=== PATIENT | male | born 1945 | race Caucasian/White ===

== ENCOUNTER 2017-07-18 19:25 | Inpatient (IN) | payer MEDICARE ==
[~2017-07-18] VITALS: Ht 172.7 cm; Wt 96.2 kg
[2017-07-18 21:05] LABS: HEMATOCRIT 41.9 % (39.2-51.8); HEMOGLOBIN 13.7 g/dL (13.7-18.0); WHITE BLOOD COUNT 8.5 x10^3/uL (3.4-10)
[2017-07-18 21:17] LABS: ASPARTATE AMINO TRANSFERASE 29 U/L (15-37); BLOOD UREA NITROGEN 33 mg/dL (7-18)
[2017-07-18 21:25] LABS: IS PT STATUS REG ER OR PRE ER? YES
[2017-07-18] MEDS ORDERED: FUROSEMIDE 40 MG/4 ML ONE (21:50)
[2017-07-18] MEDS ORDERED: POTASSIUM CHLORIDE 20 MEQ TAB.ER.PRT ONE (21:50)
[2017-07-18] MEDS ORDERED: POTASSIUM CHLORIDE 20 MEQ TAB.ER.PRT PO ONE (22:00)
[2017-07-18] MEDS ORDERED: FUROSEMIDE 40 MG/4 ML IV ONE (22:00)
[2017-07-18] MEDS ORDERED: morphine SULFATE 10 MG/ML, 1ML IVPush PRN (22:30)
[2017-07-18] MEDS ORDERED: ONDANSETRON 2MG/ML, 2ML IVPush PRN (22:30)
[2017-07-18] MEDS ORDERED: ACETAMINOPHEN 325 MG TABLET PO PRN (22:30)
[2017-07-18] MEDS ORDERED: CARV12.5 PO (22:31)
[2017-07-18] MEDS ORDERED: AMBR5TAB3 PO (22:31)
[2017-07-18] MEDS ORDERED: SPIR25TA3 PO (22:33)
[2017-07-18] MEDS ORDERED: SITA100T PO (22:33)
[2017-07-18] MEDS ORDERED: ENAL10TA PO (22:33)
[2017-07-18] MEDS ORDERED: TORS20TA2 PO (22:33)
[2017-07-19] VITALS: BP 118/75
[2017-07-19 00:22] LABS: IS PT STATUS REG ER OR PRE ER? NO
[2017-07-19] MEDS ORDERED: AMBR5TAB3 PO (00:45)
[2017-07-19] MEDS: INSULIN ASPART 100 UNITS/ML, PEN SQ-INSULIN SCH ×5 (01:12→21:40)
[2017-07-19] MEDS: AMBRISENTAN HOMEMEDPO SCH ×2 (01:34→21:40)
[2017-07-19 01:40] VITALS: BP 94/60
[2017-07-19] MEDS: POTASSIUM CHLORIDE 20 MEQ TAB.ER.PRT PO SCH ×3 (01:42→16:37)
[2017-07-19 04:48] LABS: ASPARTATE AMINO TRANSFERASE 22 U/L (15-37); BLOOD UREA NITROGEN 32 mg/dL (7-18)
[2017-07-19 04:52] LABS: IS PT STATUS REG ER OR PRE ER? NO
[2017-07-19] MEDS: LACTULOSE 10 GM/15 ML UDC PO SCH ×2 (08:35→21:00)
[2017-07-19] MEDS: SODIUM CHLORIDE FLUSH 10ML SYR IVF SCH ×2 (08:35→21:39)
[2017-07-19] MEDS: FUROSEMIDE 40 MG/4 ML IV SCH ×2 (08:35→16:34)
[2017-07-19] MEDS: ENOXAPARIN 40 MG/0.4 ML SQ SCH (08:36)
[2017-07-19] MEDS ORDERED: CARVEDILOL 12.5 MG TABLET PO SCH (09:00)
[2017-07-19] MEDS ORDERED: LETAIRIS 5 MG PO SCH (09:00)
[2017-07-19 10:28] VITALS: BP 105/71
[2017-07-19 13:25] VITALS: BP 101/65
[2017-07-19 18:30] VITALS: BP 118/69
[2017-07-19] MEDS: CARVEDILOL 3.125 MG TABLET PO SCH (21:39)
[2017-07-20] MEDS: TEMAZEPAM 15 MG CAPSULE PO PRN ×2 (00:16→22:45)
[2017-07-20 01:53] VITALS: BP 97/56
[2017-07-20 05:34] LABS: HEMATOCRIT 43.8 % (39.2-51.8); HEMOGLOBIN 14.1 g/dL (13.7-18.0); WHITE BLOOD COUNT 7.8 x10^3/uL (3.4-10)
[2017-07-20 06:11] LABS: BLOOD UREA NITROGEN 39 mg/dL (7-18)
[2017-07-20] MEDS: INSULIN ASPART 100 UNITS/ML, PEN SQ-INSULIN SCH ×4 (07:00→21:02)
[2017-07-20] MEDS: CARVEDILOL 3.125 MG TABLET PO SCH ×2 (08:09→16:59)
[2017-07-20] MEDS: ENOXAPARIN 40 MG/0.4 ML SQ SCH (08:09)
[2017-07-20] MEDS: POTASSIUM CHLORIDE 20 MEQ TAB.ER.PRT PO SCH ×2 (08:09→16:58)
[2017-07-20] MEDS: LACTULOSE 10 GM/15 ML UDC PO SCH ×2 (08:09→21:02)
[2017-07-20] MEDS: SODIUM CHLORIDE FLUSH 10ML SYR IVF SCH ×2 (08:10→21:02)
[2017-07-20] MEDS: FUROSEMIDE 40 MG/4 ML IV SCH (08:10)
[2017-07-20 09:12] VITALS: BP 126/79
[2017-07-20 14:49] VITALS: BP 125/77
[2017-07-20] MEDS: AMBRISENTAN HOMEMEDPO SCH (21:00)
[2017-07-20 21:11] VITALS: BP 123/76
[2017-07-21 03:25] VITALS: BP 132/80
[2017-07-21 04:31] LABS: HEMATOCRIT 38.5 % (39.2-51.8); HEMOGLOBIN 12.6 g/dL (13.7-18.0); WHITE BLOOD COUNT 7.3 x10^3/uL (3.4-10)
[2017-07-21 04:41] LABS: BLOOD UREA NITROGEN 37 mg/dL (7-18)
[2017-07-21] MEDS: CARVEDILOL 3.125 MG TABLET PO SCH ×2 (06:05→17:28)
[2017-07-21 07:51] VITALS: BP 120/73
[2017-07-21] MEDS: POTASSIUM CHLORIDE 20 MEQ TAB.ER.PRT PO SCH ×2 (08:05→17:28)
[2017-07-21] MEDS: LACTULOSE 10 GM/15 ML UDC PO SCH ×2 (08:05→20:28)
[2017-07-21] MEDS: ENOXAPARIN 40 MG/0.4 ML SQ SCH (08:05)
[2017-07-21] MEDS: SPIRONOLACTONE 25 MG TABLET PO SCH (08:05)
[2017-07-21] MEDS: INSULIN ASPART 100 UNITS/ML, PEN SQ-INSULIN SCH ×4 (08:06→20:28)
[2017-07-21] MEDS: SODIUM CHLORIDE FLUSH 10ML SYR IVF SCH ×2 (08:07→20:28)
[2017-07-21] MEDS ORDERED: FUROSEMIDE 20 MG/2 ML IV SCH (09:00)
[2017-07-21 13:10] VITALS: BP 128/87
[2017-07-21] MEDS: FUROSEMIDE 20 MG TABLET PO SCH (14:25)
[2017-07-21 19:24] VITALS: BP 123/74
[2017-07-21] MEDS: AMBRISENTAN HOMEMEDPO SCH (20:28)
[2017-07-22] MEDS: OXYcodone/APAP 5/325MG TABLET PO PRN ×2 (01:31→22:52)
[2017-07-22 01:35] VITALS: BP 123/76
[2017-07-22 06:06] LABS: HEMATOCRIT 41.5 % (39.2-51.8); HEMOGLOBIN 13.5 g/dL (13.7-18.0); WHITE BLOOD COUNT 6.4 x10^3/uL (3.4-10)
[2017-07-22 06:30] LABS: BLOOD UREA NITROGEN 39 mg/dL (7-18)
[2017-07-22] MEDS: INSULIN ASPART 100 UNITS/ML, PEN SQ-INSULIN SCH ×4 (07:00→21:26)
[2017-07-22 07:37] VITALS: BP 132/83
[2017-07-22] MEDS: POTASSIUM CHLORIDE 20 MEQ TAB.ER.PRT PO SCH ×2 (08:00→17:00)
[2017-07-22] MEDS: CARVEDILOL 3.125 MG TABLET PO SCH ×3 (10:07→16:54)
[2017-07-22] MEDS: FUROSEMIDE 20 MG TABLET PO SCH ×2 (10:07→10:30)
[2017-07-22] MEDS: ENOXAPARIN 40 MG/0.4 ML SQ SCH (10:07)
[2017-07-22] MEDS: LACTULOSE 10 GM/15 ML UDC PO SCH (10:07)
[2017-07-22] MEDS: SPIRONOLACTONE 25 MG TABLET PO SCH (10:07)
[2017-07-22] MEDS: SODIUM CHLORIDE FLUSH 10ML SYR IVF SCH (10:07)
[2017-07-22 12:24] VITALS: BP 116/71
[2017-07-22] MEDS ORDERED: ACETAMINOPHEN 325 MG TABLET PO PRN (19:00)
[2017-07-22] MEDS ORDERED: ONDANSETRON 2MG/ML, 2ML IVPush PRN (19:00)
[2017-07-22] MEDS ORDERED: FUROSEMIDE 40 MG/4 ML IV ONE (19:00)
[2017-07-22] MEDS: AMBRISENTAN HOMEMEDPO SCH (21:00)
[2017-07-22 21:19] VITALS: BP 141/86
[2017-07-23 02:00] VITALS: BP 126/76
[2017-07-23 05:46] LABS: HEMATOCRIT 43.2 % (39.2-51.8); HEMOGLOBIN 13.9 g/dL (13.7-18.0); WHITE BLOOD COUNT 6.1 x10^3/uL (3.4-10)
[2017-07-23 06:04] LABS: BLOOD UREA NITROGEN 38 mg/dL (7-18)
[2017-07-23] MEDS: SODIUM CHLORIDE FLUSH 10ML SYR IVF SCH ×2 (06:07→08:22)
[2017-07-23] MEDS: CARVEDILOL 3.125 MG TABLET PO SCH ×2 (06:08→17:26)
[2017-07-23] MEDS: ENOXAPARIN 40 MG/0.4 ML SQ SCH (08:22)
[2017-07-23] MEDS: FUROSEMIDE 20 MG TABLET PO SCH (08:22)
[2017-07-23] MEDS: SPIRONOLACTONE 25 MG TABLET PO SCH (08:22)
[2017-07-23] MEDS: INSULIN ASPART 100 UNITS/ML, PEN SQ-INSULIN SCH ×3 (08:22→16:23)
[2017-07-23 08:34] VITALS: BP 132/73
[2017-07-23 15:15] VITALS: BP 123/77
[2017-07-23] MEDS ORDERED: CARV3.1212 PO (16:01)
[2017-07-23] MEDS ORDERED: OXYC1TAB7 PO (16:01)
[2017-07-23] MEDS ORDERED: FURO20TA3 PO (16:01)
== END 2017-07-23 19:19 | disposition home or self-care (01) | DRG 291 ==
LOC: ED 21:58 → SUATTDRO 22:00 → EDIP 22:04 → ED 23:14 → 5SO 23:27
PROVIDERS: ADMIT Hospitalist; ATTEND Internal Medicine
DX: I13.0 Hypertensive heart and chronic kidney disease with heart failure and stage 1 through stage 4 chronic kidney disease, or unspecified chronic kidney disease (principal); E43 Unspecified severe protein-calorie malnutrition; J96.21 Acute and chronic respiratory failure with hypoxia; J18.9 Pneumonia, unspecified organism; N18.4 Chronic kidney disease, stage 4 (severe); N17.9 Acute kidney failure, unspecified; I27.2 Other secondary pulmonary hypertension; E11.21 Type 2 diabetes mellitus with diabetic nephropathy; I42.9 Cardiomyopathy, unspecified; E11.649 Type 2 diabetes mellitus with hypoglycemia without coma; I50.20 Unspecified systolic (congestive) heart failure; E11.22 Type 2 diabetes mellitus with diabetic chronic kidney disease; E80.4 Gilbert syndrome; E87.5 Hyperkalemia; I37.1 Nonrheumatic pulmonary valve insufficiency; Z91.19 Patient's noncompliance with other medical treatment and regimen; Z99.81 Dependence on supplemental oxygen; Z88.1 Allergy status to other antibiotic agents; Z68.32 Body mass index [BMI] 32.0-32.9, adult
CPT/HCPCS: 36415; 71020; 76770; 80048; 80053; 80061; 81001; 82962; 83735; 83880; 84100; 84443; 84484; 85025; 87040; 93005; 93306; 96374; J1650; J1815; J1940; J2270

== ENCOUNTER 2017-07-28 19:20 | Emergency (ER) | payer MEDICARE ==
[~2017-07-28] VITALS: Ht 172.7 cm; Wt 98.2 kg
[~2017-07-28 19:20] MED LIST: AMBR5TAB3 PO; CARV12.5 PO; CARV3.1212 PO; ENAL10TA PO; FURO20TA3 PO; OXYC1TAB7 PO; SITA100T PO; SPIR25TA3 PO; TORS20TA2 PO
[2017-07-28 20:26] LABS: BLOOD UREA NITROGEN 42 mg/dL (7-18)
[2017-07-28 20:32] LABS: ASPARTATE AMINO TRANSFERASE 22 U/L (15-37)
[2017-07-28 20:33] LABS: IS PT STATUS REG ER OR PRE ER? YES
[2017-07-28 20:51] LABS: HEMATOCRIT 42.4 % (39.2-51.8); HEMOGLOBIN 13.6 g/dL (13.7-18.0); WHITE BLOOD COUNT 7.8 x10^3/uL (3.4-10)
[2017-07-28] MEDS ORDERED: FUROSEMIDE 40 MG/4 ML ONE (20:56)
[2017-07-28] MEDS ORDERED: FUROSEMIDE 40 MG/4 ML IV ONE (21:00)
[2017-07-28] MEDS ORDERED: MAGNESIUM CITRATE 300ML ORAL SOL ONE (21:56)
[2017-07-28] MEDS ORDERED: MAGNESIUM CITRATE 300ML ORAL SOL PO ONE (22:00)
[2017-07-29 00:20] VITALS: BP 134/77
== END 2017-07-29 00:23 | disposition home or self-care (01) ==
LOC: ED 21:11
DX: I11.0 Hypertensive heart disease with heart failure (principal); I50.1 Left ventricular failure, unspecified; R60.0 Localized edema; R79.89 Other specified abnormal findings of blood chemistry; E11.9 Type 2 diabetes mellitus without complications
CPT/HCPCS: 36415; 71010; 80053; 83880; 84484; 85025; 93005; 96374; 99285; J1940

== ENCOUNTER 2017-08-02 16:40 | Inpatient (IN) | payer MEDICARE ==
[~2017-08-02] VITALS: Ht 172.7 cm; Wt 99.9 kg
[2017-08-02] MEDS ORDERED: ASPIRIN 81 MG TABLET CHEW ONE (16:58)
[2017-08-02] MEDS ORDERED: SODIUM CHLORIDE FLUSH 10ML SYR IVF ONE (17:00)
[2017-08-02] MEDS ORDERED: ASPIRIN 81 MG TABLET CHEW PO ONE (17:00)
[2017-08-02] MEDS ORDERED: FUROSEMIDE 40 MG/4 ML IV ONE (17:30)
[2017-08-02 17:31] LABS: HEMOGLOBIN 14.8 g/dL (13.7-18.0); WHITE BLOOD COUNT 7.9 x10^3/uL (3.4-10)
[2017-08-02] MEDS ORDERED: FUROSEMIDE 40 MG/4 ML ONE (17:34)
[2017-08-02 17:42] LABS: BLOOD UREA NITROGEN 42 mg/dL (7-18)
[2017-08-02 17:46] LABS: ASPARTATE AMINO TRANSFERASE 30 U/L (15-37)
[2017-08-02 17:47] LABS: IS PT STATUS REG ER OR PRE ER? YES
[2017-08-02] MEDS ORDERED: SODIUM CHLORIDE FLUSH 10ML SYR IVF PRN (19:00)
[2017-08-02] MEDS ORDERED: DOCUSATE 100 MG CAPSULE PO PRN (20:00)
[2017-08-02] MEDS ORDERED: ONDANSETRON 2MG/ML, 2ML IVPush PRN (20:00)
[2017-08-02] MEDS ORDERED: LABETALOL 5MG/ML, 20ML IVPush PRN (20:00)
[2017-08-02] MEDS ORDERED: POLYETHYLENE GLYCOL 17 GM PACKET PO PRN (20:00)
[2017-08-02] MEDS ORDERED: hydrALAzine 20 MG/ML, 1ML IVPush PRN (20:00)
[2017-08-02] MEDS ORDERED: morphine SULFATE 10 MG/ML, 1ML IVPush PRN (20:00)
[2017-08-02 20:25] LABS: BLOOD UREA NITROGEN 41 mg/dL (7-18)
[2017-08-02 21:12] VITALS: BP 121/77
[2017-08-02] MEDS: SODIUM CHLORIDE 0.9% 1,000 ML IV SCH (22:01)
[2017-08-02] MEDS: CARVEDILOL 3.125 MG TABLET PO SCH (22:03)
[2017-08-02] MEDS: OXYcodone/APAP 5/325MG TABLET PO PRN (23:52)
[2017-08-03] MEDS: OXYcodone/APAP 5/325MG TABLET PO PRN (01:25)
[2017-08-03 02:00] VITALS: BP 118/74
[2017-08-03 06:04] LABS: BLOOD UREA NITROGEN 44 mg/dL (7-18)
[2017-08-03 06:07] LABS: ASPARTATE AMINO TRANSFERASE 22 U/L (15-37)
[2017-08-03] MEDS ORDERED: PNEUMOCOCCAL 23 VACCINE IM-VACC ONE (06:30)
[2017-08-03] MEDS ORDERED: FLU VACC QS2017-18 (36MOS+) UP/PF 0.5 ML IM-VACC ONE (06:30)
[2017-08-03 08:51] VITALS: BP 117/74
[2017-08-03] MEDS: CARVEDILOL 3.125 MG TABLET PO SCH ×2 (08:53→22:04)
[2017-08-03] MEDS: SITAGLIPTIN 50MG TABLET PO SCH (08:53)
[2017-08-03] MEDS: SODIUM CHLORIDE 0.9% 1,000 ML IV SCH (08:54)
[2017-08-03] MEDS: ENOXAPARIN 40 MG/0.4 ML SQ SCH (08:54)
[2017-08-03] MEDS ORDERED: AMBRISENTAN 5 MG HOMEMEDPO SCH (09:00)
[2017-08-03] MEDS ORDERED: ENOXAPARIN 30 MG/0.3 ML SQ SCH (09:00)
[2017-08-03 15:05] VITALS: BP 122/68
[2017-08-03 19:34] VITALS: BP 106/69
[2017-08-03 21:59] VITALS: BP 131/81
[2017-08-03] MEDS: AMBRISENTAN 5 MG HOMEMEDPO SCH (22:06)
[2017-08-04] MEDS: SIMETHICONE 80 MG CHEW TAB PO PRN ×2 (00:02→23:20)
[2017-08-04 00:57] VITALS: BP 122/74
[2017-08-04] MEDS: OXYcodone/APAP 5/325MG TABLET PO PRN ×2 (02:00→23:20)
[2017-08-04 06:00] LABS: BLOOD UREA NITROGEN 44 mg/dL (7-18)
[2017-08-04] MEDS ORDERED: SODIUM CHLORIDE 0.9% 1,000 ML IV SCH (06:08)
[2017-08-04 06:37] VITALS: BP 122/78
[2017-08-04] MEDS: CARVEDILOL 3.125 MG TABLET PO SCH ×2 (06:38→17:11)
[2017-08-04 07:30] VITALS: BP 126/74
[2017-08-04] MEDS: ENOXAPARIN 40 MG/0.4 ML SQ SCH (07:46)
[2017-08-04] MEDS: SITAGLIPTIN 50MG TABLET PO SCH (07:46)
[2017-08-04] MEDS ORDERED: MIDAZOLAM 1 MG/ML, 5ML ONE (09:06)
[2017-08-04] MEDS ORDERED: HEPARIN 1,000 UNITS/ML, 10ML ONE (09:07)
[2017-08-04] MEDS ORDERED: LIDOCAINE 2%, 20ML ONE (09:07)
[2017-08-04] MEDS ORDERED: VERAPAMIL 2.5 MG/ML, 2ML ONE (09:07)
[2017-08-04] MEDS ORDERED: FENTANYL PF 100 MCG/2ML ONE (09:07)
[2017-08-04] MEDS ORDERED: TICAGRELOR 90 MG TABLET ONE (09:09)
[2017-08-04] MEDS ORDERED: BIVALIRUDIN 250 MG ONE (09:09)
[2017-08-04] MEDS: SODIUM CHLORIDE 0.45% 1,000 ML IV SCH ×2 (10:15→20:41)
[2017-08-04 13:10] VITALS: BP 124/75
[2017-08-04] MEDS: FUROSEMIDE 40 MG/4 ML IV SCH ×2 (14:40→20:38)
[2017-08-04 17:10] VITALS: BP 120/75
[2017-08-04] MEDS: POTASSIUM CHLORIDE 10 MEQ TABLET.ER PO SCH (17:11)
[2017-08-04 20:00] VITALS: BP 122/73
[2017-08-04] MEDS: AMBRISENTAN 5 MG HOMEMEDPO SCH (20:42)
[2017-08-05 02:00] VITALS: BP 126/78
[2017-08-05] MEDS: SODIUM CHLORIDE 0.45% 1,000 ML IV SCH ×2 (04:00→09:23)
[2017-08-05 05:44] VITALS: BP 125/83
[2017-08-05] MEDS: CARVEDILOL 3.125 MG TABLET PO SCH ×2 (05:45→17:03)
[2017-08-05] MEDS: OXYcodone/APAP 5/325MG TABLET PO PRN ×2 (05:46→23:25)
[2017-08-05 05:56] LABS: BLOOD UREA NITROGEN 41 mg/dL (7-18)
[2017-08-05 08:22] VITALS: BP 129/78
[2017-08-05] MEDS: ENOXAPARIN 40 MG/0.4 ML SQ SCH (09:20)
[2017-08-05] MEDS: POTASSIUM CHLORIDE 10 MEQ TABLET.ER PO SCH ×2 (09:20→17:02)
[2017-08-05] MEDS: SIMETHICONE 80 MG CHEW TAB PO PRN ×2 (09:20→19:56)
[2017-08-05] MEDS: FUROSEMIDE 40 MG/4 ML IV SCH ×2 (09:20→17:03)
[2017-08-05] MEDS: SITAGLIPTIN 50MG TABLET PO SCH (09:20)
[2017-08-05 13:35] VITALS: BP 124/78
[2017-08-05] MEDS: AMBRISENTAN 5 MG HOMEMEDPO SCH (19:56)
[2017-08-05 20:01] VITALS: BP 125/83
[2017-08-06 02:00] VITALS: BP 114/75
[2017-08-06] MEDS: CARVEDILOL 3.125 MG TABLET PO SCH ×2 (05:34→17:00)
[2017-08-06 05:45] VITALS: BP 114/75
[2017-08-06] MEDS: AMBRISENTAN 5 MG HOMEMEDPO SCH ×2 (07:30→20:46)
[2017-08-06] MEDS: FUROSEMIDE 40 MG/4 ML IV SCH ×2 (07:30→17:00)
[2017-08-06] MEDS: POTASSIUM CHLORIDE 10 MEQ TABLET.ER PO SCH ×2 (07:30→17:00)
[2017-08-06] MEDS: SITAGLIPTIN 50MG TABLET PO SCH (07:30)
[2017-08-06 08:00] VITALS: BP 111/72
[2017-08-06] MEDS: ENOXAPARIN 40 MG/0.4 ML SQ SCH (10:05)
[2017-08-06 14:00] VITALS: BP 123/76
[2017-08-06 19:42] VITALS: BP 122/76
[2017-08-06] MEDS: OXYcodone/APAP 5/325MG TABLET PO PRN (23:17)
[2017-08-07 03:55] VITALS: BP 109/64
[2017-08-07 04:57] LABS: BLOOD UREA NITROGEN 33 mg/dL (7-18)
[2017-08-07] MEDS: CARVEDILOL 3.125 MG TABLET PO SCH (05:15)
[2017-08-07] MEDS: OXYcodone/APAP 5/325MG TABLET PO PRN ×2 (05:16→20:24)
[2017-08-07 05:56] LABS: HEMATOCRIT 39.3 % (39.2-51.8); HEMOGLOBIN 12.8 g/dL (13.7-18.0); WHITE BLOOD COUNT 6.3 x10^3/uL (3.4-10)
[2017-08-07] MEDS: AMBRISENTAN 5 MG HOMEMEDPO SCH ×2 (08:01→20:24)
[2017-08-07] MEDS: ENOXAPARIN 40 MG/0.4 ML SQ SCH (08:03)
[2017-08-07] MEDS: SITAGLIPTIN 50MG TABLET PO SCH (08:03)
[2017-08-07] MEDS: POTASSIUM CHLORIDE 10 MEQ TABLET.ER PO SCH ×2 (08:03→17:08)
[2017-08-07 08:04] VITALS: BP 126/78
[2017-08-07] MEDS ORDERED: DOBUTAMINE/D5W PMX 250 ML ONE (08:09)
[2017-08-07] MEDS ORDERED: ATROPINE SYRINGE 0.1 MG/ML, 10ML ONE (08:09)
[2017-08-07] MEDS: FUROSEMIDE 40 MG/4 ML IV SCH ×2 (10:38→17:08)
[2017-08-07 14:16] VITALS: BP 126/75
[2017-08-07 19:47] VITALS: BP 125/77
[2017-08-08 02:09] VITALS: BP 99/66
[2017-08-08 05:35] LABS: HEMATOCRIT 41.9 % (39.2-51.8); HEMOGLOBIN 13.8 g/dL (13.7-18.0); WHITE BLOOD COUNT 6.2 x10^3/uL (3.4-10)
[2017-08-08 05:52] LABS: ASPARTATE AMINO TRANSFERASE 15 U/L (15-37); BLOOD UREA NITROGEN 36 mg/dL (7-18)
[2017-08-08 08:26] VITALS: BP 126/77
[2017-08-08] MEDS ORDERED: ALBUTEROL SULFATE 2.5 MG/3 ML ONE (08:43)
[2017-08-08] MEDS: FUROSEMIDE 40 MG/4 ML IV SCH (09:30)
[2017-08-08] MEDS: SITAGLIPTIN 50MG TABLET PO SCH (09:32)
[2017-08-08] MEDS: POTASSIUM CHLORIDE 10 MEQ TABLET.ER PO SCH ×2 (09:32→16:48)
[2017-08-08] MEDS: ENOXAPARIN 40 MG/0.4 ML SQ SCH (10:17)
[2017-08-08 15:37] VITALS: BP 122/76
[2017-08-08] MEDS: CARVEDILOL 3.125 MG TABLET PO SCH (16:47)
[2017-08-08] MEDS: FUROSEMIDE 40 MG TABLET PO SCH (16:48)
[2017-08-08] MEDS: AMBRISENTAN 5 MG HOMEMEDPO SCH (16:49)
[2017-08-08 19:43] VITALS: BP 117/80
[2017-08-08] MEDS: OXYcodone/APAP 5/325MG TABLET PO PRN (23:21)
[2017-08-09 05:04] VITALS: BP 115/61
[2017-08-09] MEDS: CARVEDILOL 3.125 MG TABLET PO SCH ×2 (05:31→17:39)
[2017-08-09 05:47] LABS: HEMOGLOBIN 12.9 g/dL (13.7-18.0); WHITE BLOOD COUNT 5.4 x10^3/uL (3.4-10)
[2017-08-09 05:58] LABS: BLOOD UREA NITROGEN 33 mg/dL (7-18)
[2017-08-09 08:45] VITALS: BP 116/77
[2017-08-09] MEDS: ENOXAPARIN 40 MG/0.4 ML SQ SCH (08:47)
[2017-08-09] MEDS: FUROSEMIDE 40 MG TABLET PO SCH ×2 (08:47→17:38)
[2017-08-09] MEDS: SITAGLIPTIN 50MG TABLET PO SCH (08:47)
[2017-08-09] MEDS: POTASSIUM CHLORIDE 10 MEQ TABLET.ER PO SCH ×2 (08:47→17:38)
[2017-08-09] MEDS ORDERED: LISINOPRIL 5 MG TABLET PO SCH (09:00)
[2017-08-09 14:00] VITALS: BP 114/72
[2017-08-09] MEDS ORDERED: LISI5TAB7 PO (17:26)
[2017-08-09] MEDS ORDERED: FURO40TA6 PO (17:26)
[2017-08-09] MEDS ORDERED: POTA10TA5 PO (17:26)
[2017-08-09] MEDS: AMBRISENTAN 5 MG HOMEMEDPO SCH (17:39)
== END 2017-08-09 19:53 | disposition home or self-care (01) | DRG 286 ==
LOC: ED 17:10 → EDIP 18:57 → 5SO 21:06
PROVIDERS: ADMIT Hospitalist; ATTEND Internal Medicine
PROC: 4A023N8 Measurement of Cardiac Sampling and Pressure, Bilateral, Percutaneous Approach (ICD-10-PCS; principal; 2017-08-04)
PROC: B2151ZZ Fluoroscopy of Left Heart using Low Osmolar Contrast (ICD-10-PCS; 2017-08-04)
PROC: B2111ZZ Fluoroscopy of Multiple Coronary Arteries using Low Osmolar Contrast (ICD-10-PCS; 2017-08-04)
DX: I13.0 Hypertensive heart and chronic kidney disease with heart failure and stage 1 through stage 4 chronic kidney disease, or unspecified chronic kidney disease (principal); J96.21 Acute and chronic respiratory failure with hypoxia; E43 Unspecified severe protein-calorie malnutrition; N18.4 Chronic kidney disease, stage 4 (severe); N17.9 Acute kidney failure, unspecified; E11.21 Type 2 diabetes mellitus with diabetic nephropathy; I25.82 Chronic total occlusion of coronary artery; I50.43 Acute on chronic combined systolic (congestive) and diastolic (congestive) heart failure; I35.0 Nonrheumatic aortic (valve) stenosis; I27.29 Other secondary pulmonary hypertension; I42.9 Cardiomyopathy, unspecified; E11.22 Type 2 diabetes mellitus with diabetic chronic kidney disease; E11.65 Type 2 diabetes mellitus with hyperglycemia; E11.40 Type 2 diabetes mellitus with diabetic neuropathy, unspecified; E80.4 Gilbert syndrome; I25.10 Atherosclerotic heart disease of native coronary artery without angina pectoris; I27.81 Cor pulmonale (chronic); I37.1 Nonrheumatic pulmonary valve insufficiency; J44.9 Chronic obstructive pulmonary disease, unspecified; Z79.82 Long term (current) use of aspirin; Z87.891 Personal history of nicotine dependence; Z99.81 Dependence on supplemental oxygen; Z68.33 Body mass index [BMI] 33.0-33.9, adult; Z88.1 Allergy status to other antibiotic agents; Z87.01 Personal history of pneumonia (recurrent)
CPT/HCPCS: 36415; 71010; 80048; 80053; 81003; 82040; 83735; 83880; 84100; 84484; 85025; 90686; 90732; 93005; 93017; 93350; 93460; 93880; 94060; 96374; 99156; 99157; C1769; C1894; J0461; J0583; J1644; J1650; J1940; J2250; J3010; J3490; J1250; J7030; Q9967

== ENCOUNTER 2017-10-06 04:17 | Inpatient (IN) | payer MEDICARE ==
[2017-10-05 15:23] LABS: HEMATOCRIT 41.5 % (39.2-51.8); HEMOGLOBIN 13.6 g/dL (13.7-18.0); WHITE BLOOD COUNT 6.3 x10^3/uL (3.4-10)
[2017-10-05 15:37] LABS: BLOOD UREA NITROGEN 44 mg/dL (7-18)
[2017-10-05 15:47] LABS: ASPARTATE AMINO TRANSFERASE 17 U/L (15-37)
[2017-10-06] VITALS (15 sets, daily range): BP systolic 81–122; BP diastolic 42–83
[~2017-10-06] VITALS: Ht 172.7 cm; Wt 96.0 kg
[~2017-10-06 04:17] MED LIST changes: +CARV3.122 PO; +FINA5TAB4 PO; +FURO40TA6 PO; +FURO80TA3 PO; +LISI2.5T PO; +LISI5TAB7 PO; +METO10TA6 PO; +POTA10TA5 PO; +POTA20TA14 PO; +SITA50TA PO
[2017-10-06] MEDS ORDERED: ALBUMIN HUMAN 5% 500 ML IV PRN (05:00)
[2017-10-06] MEDS ORDERED: CHLORHEXIDINE MOUTHWASH 15 ML UDC MM SCH (05:30)
[2017-10-06] MEDS ORDERED: AMBR5TAB3 PO (05:41)
[2017-10-06] MEDS ORDERED: INSULIN ASPART 100 UNITS/ML, PEN SQ-INSULIN SCH (06:00)
[2017-10-06] MEDS: MUPIROCIN OINT 2%, 22GM TP SCH ×2 (06:01→21:02)
[2017-10-06] MEDS ORDERED: MANNITOL PMX 20% 500 ML IVPB PRN (07:30)
[2017-10-06] MEDS ORDERED: POTASSIUM CHLORIDE 80 MEQ, SODIUM BICARBONATE 8.4% 10 MEQ, MAGNESIUM SULFATE 0.5 GM, LI... IV PRN (07:30)
[2017-10-06] MEDS ORDERED: DEXMEDETOMIDINE 200 MCG in SODIUM CHLORIDE 0.9% 48 ML IV SCH (07:30)
[2017-10-06] MEDS ORDERED: REGULAR INSULIN 62.5 UNITS in SODIUM CHLORIDE 0.9% 249.375 ML IV PRN ×2 (07:30→09:20)
[2017-10-06] MEDS ORDERED: VANCOMYCIN 1,400 MG in SODIUM CHLORIDE 0.9% 250 ML IV PRN (07:30)
[2017-10-06] MEDS ORDERED: PHENYLEPHRINE 10 MG in SODIUM CHLORIDE 0.9% 249 ML IV PRN ×2 (07:30→09:20)
[2017-10-06] MEDS ORDERED: EPINEPHRINE 2 MG in SODIUM CHLORIDE 0.9% 248 ML IV SCH (07:30)
[2017-10-06] MEDS ORDERED: FENTANYL PF 1000 MCG/20ML ONE (07:55)
[2017-10-06] MEDS ORDERED: MIDAZOLAM 10MG/2 ML ONE (07:55)
[2017-10-06] MEDS ORDERED: VASOPRESSIN 20 UNIT/ML, 1ML ONE (07:58)
[2017-10-06] MEDS ORDERED: ROCURONIUM 10 MG/ML,10ML ONE ×2 (08:00→08:37)
[2017-10-06] MEDS ORDERED: PROPOFOL 10 MG/ML, 20ML ONE ×2 (08:00→08:37)
[2017-10-06] MEDS ORDERED: AMIODARONE 50 MG/ML, 3ML ONE (08:37)
[2017-10-06] MEDS ORDERED: FENTANYL PF 250 MCG/5ML ONE (08:37)
[2017-10-06] MEDS ORDERED: MIDAZOLAM 1 MG/ML, 5ML ONE (08:37)
[2017-10-06] MEDS: DOCUSATE 100 MG CAPSULE PO SCH ×2 (09:00→21:03)
[2017-10-06] MEDS ORDERED: DOBUTAMINE 250 MG in SODIUM CHLORIDE 0.9% 230 ML IV PRN (09:20)
[2017-10-06] MEDS ORDERED: VASOPRESSIN 50 UNIT in SODIUM CHLORIDE 0.9% 250 ML IV PRN (09:20)
[2017-10-06] MEDS ORDERED: NITROGLYCERIN/D5W PMX 240 ML IV PRN (09:20)
[2017-10-06] MEDS ORDERED: morphine SULFATE 10 MG/ML, 1ML IVPush PRN (09:30)
[2017-10-06] MEDS ORDERED: DEXTROSE 50%, 50ML SYRINGE IVPush PRN (09:30)
[2017-10-06] MEDS ORDERED: INSULIN REGULAR 100 UNITS/ML, 3ML VIAL IVPush PRN (09:30)
[2017-10-06] MEDS ORDERED: DEXTROSE 4 GM TAB.CHEW PO PRN (09:30)
[2017-10-06] MEDS: CHLORHEXIDINE MOUTHWASH 15 ML UDC MM SCH ×2 (09:30→21:30)
[2017-10-06] MEDS ORDERED: BISACODYL 10 MG SUPP PR PRN (09:30)
[2017-10-06] MEDS ORDERED: LACTATED RINGERS 1,000 ML IV PRN (09:30)
[2017-10-06] MEDS: KSCALE TO 4.5 IV SCH ×3 (09:30→21:30)
[2017-10-06] MEDS ORDERED: ACETAMINOPHEN 325 MG TABLET PO PRN (09:30)
[2017-10-06] MEDS ORDERED: ACETAMINOPHEN 650 MG SUPP PR PRN (09:30)
[2017-10-06] MEDS ORDERED: PROCHLORPERAZINE 5 MG/ML, 2ML IVPush PRN (09:30)
[2017-10-06] MEDS ORDERED: FENTANYL PF 100 MCG/2ML IVPush PRN (09:30)
[2017-10-06] MEDS ORDERED: GLUCAGON 1 MG IM PRN (09:30)
[2017-10-06] MEDS ORDERED: EPINEPHRINE 2 MG in SODIUM CHLORIDE 0.9% 248 ML IV PRN (09:30)
[2017-10-06] MEDS ORDERED: SODIUM BICARB 8.4%, 50ML SYRINGE IV PRN (09:30)
[2017-10-06] MEDS ORDERED: PROTAMINE SULFATE 10 MG/ML, 25ML ONE ×2 (10:44→10:45)
[2017-10-06] MEDS ORDERED: CALCIUM CHLORIDE 10%, 10ML SYR ONE ×2 (10:45→12:32)
[2017-10-06] MEDS ORDERED: MILRINONE 1 MG/ML, 20ML ONE ×2 (10:45→13:11)
[2017-10-06] MEDS ORDERED: EPINEPHRINE 1 MG/ML, 1ML ONE (10:45)
[2017-10-06] MEDS ORDERED: PHENYLEPHRINE 10 MG/ML ONE (10:45)
[2017-10-06] MEDS: INSULIN ASPART 100 UNITS/ML, PEN SQ-INSULIN SCH ×3 (11:00→21:00)
[2017-10-06] MEDS ORDERED: HEPARIN 1,000 UNITS/ML, 30ML ONE ×2 (12:56→12:57)
[2017-10-06] MEDS ORDERED: ALBUMIN HUMAN 25% 50 ML ONE (12:58)
[2017-10-06] MEDS ORDERED: LIDOCAINE 2% 100MG/5ML SYRINGE ONE (12:58)
[2017-10-06 13:15] LABS: ABG COLLECTION SITE ARTERIAL LINE
[2017-10-06] MEDS: DEXMEDETOMIDINE 200 MCG in SODIUM CHLORIDE 0.9% 48 ML IV PRN ×2 (14:14→18:46)
[2017-10-06] MEDS ORDERED: NOVOSEVEN RT (FACTOR VIIA) RECOMB 1,000 MCG IVPush STA (14:14)
[2017-10-06] MEDS ORDERED: CALCIUM CHLORIDE 13.6 MEQ in SODIUM CHLORIDE 0.9% 100 ML IV ONE (14:30)
[2017-10-06] MEDS ORDERED: POTASSIUM CHLORIDE 30 MEQ in SODIUM CHLORIDE 0.9% 100 ML IV ONE (15:00)
[2017-10-06] MEDS: EPINEPHRINE 4 MG in SODIUM CHLORIDE 0.9% 246 ML IV PRN ×2 (15:43→21:23)
[2017-10-06] MEDS ORDERED: NOVOSEVEN RT (FACTOR VIIA) RECOMB 1,000 MCG IVPush ONE (16:00)
[2017-10-06 16:21] LABS: HEMATOCRIT 26.6 % (39.2-51.8); HEMOGLOBIN 8.7 g/dL (13.7-18.0)
[2017-10-06] MEDS: MAGNESIUM SULFATE 1 GM in SODIUM CHLORIDE 0.9% 50 ML IVPB SCH (18:12)
[2017-10-06] MEDS: SODIUM CHLORIDE FLUSH 10ML SYR IVF SCH ×3 (18:50→21:02)
[2017-10-06] MEDS: VANCOMYCIN 1,300 MG in SODIUM CHLORIDE 0.9% 250 ML IVPB SCH (18:51)
[2017-10-06] MEDS: MIDAZOLAM 1 MG/ML, 5ML IVPush PRN ×2 (19:48→21:01)
[2017-10-06] MEDS: MUPIROCIN OINT 2%, 22GM NAS SCH (21:00)
[2017-10-06] MEDS: CEFUROXIME 1.5 GM in SODIUM CHLORIDE 0.9% 50 ML IVPB SCH (21:21)
[2017-10-06 21:44] LABS: HEMATOCRIT 30.8 % (39.2-51.8); HEMOGLOBIN 10.1 g/dL (13.7-18.0)
[2017-10-07] MEDS: DEXMEDETOMIDINE 200 MCG in SODIUM CHLORIDE 0.9% 48 ML IV PRN ×3 (01:16→08:03)
[2017-10-07] MEDS: HYDROcodone/APAP 10/325 MG TABLET PO PRN ×4 (01:17→16:17)
[2017-10-07] MEDS: KSCALE TO 4.5 IV SCH (03:30)
[2017-10-07 04:03] LABS: ABG COLLECTION SITE NOT DOCUMENTED
[2017-10-07 04:10] LABS: HEMATOCRIT 31.2 % (39.2-51.8); HEMOGLOBIN 10.5 g/dL (13.7-18.0); WHITE BLOOD COUNT 13.2 x10^3/uL (3.4-10)
[2017-10-07 04:11] LABS: BLOOD UREA NITROGEN 38 mg/dL (7-18)
[2017-10-07] MEDS: MIDAZOLAM 1 MG/ML, 5ML IVPush PRN ×3 (04:27→18:02)
[2017-10-07] MEDS: INSULIN ASPART 100 UNITS/ML, PEN SQ-INSULIN SCH ×4 (07:00→21:00)
[2017-10-07] MEDS: CEFUROXIME 1.5 GM in SODIUM CHLORIDE 0.9% 50 ML IVPB SCH (08:23)
[2017-10-07] MEDS: DOCUSATE 100 MG CAPSULE PO SCH ×2 (09:00→21:00)
[2017-10-07] MEDS: MUPIROCIN OINT 2%, 22GM NAS SCH ×2 (09:00→21:02)
[2017-10-07] MEDS: SODIUM CHLORIDE FLUSH 10ML SYR IVF SCH ×4 (09:00→21:02)
[2017-10-07] MEDS: CHLORHEXIDINE MOUTHWASH 15 ML UDC MM SCH ×2 (09:30→21:03)
[2017-10-07] MEDS: ASPIRIN 81 MG TABLET EC PO SCH (09:36)
[2017-10-07] MEDS: MUPIROCIN OINT 2%, 22GM TP SCH ×2 (09:36→21:00)
[2017-10-07] MEDS: VANCOMYCIN 1,300 MG in SODIUM CHLORIDE 0.9% 250 ML IVPB SCH (10:53)
[2017-10-07] MEDS: EPINEPHRINE 4 MG in SODIUM CHLORIDE 0.9% 246 ML IV PRN ×2 (10:54→16:16)
[2017-10-07 10:55] LABS: HEMATOCRIT 29.4 % (39.2-51.8)
[2017-10-07] MEDS: DEXMEDETOMIDINE 1,000 MCG in SODIUM CHLORIDE 0.9% 250 ML IV PRN (11:09)
[2017-10-07] MEDS: MAGNESIUM SULFATE 1 GM in SODIUM CHLORIDE 0.9% 50 ML IVPB SCH (11:56)
[2017-10-07] MEDS: ONDANSETRON 2MG/ML, 2ML IVPush PRN (18:02)
[2017-10-07] MEDS: HYDROcodone/APAP 5/325 TABLET PO PRN (23:46)
[2017-10-08 04:00] VITALS: BP 114/55
[2017-10-08] MEDS: DEXMEDETOMIDINE 1,000 MCG in SODIUM CHLORIDE 0.9% 250 ML IV PRN (04:03)
[2017-10-08 04:14] LABS: ABG COLLECTION SITE ARTERIAL LINE
[2017-10-08 04:21] LABS: HEMATOCRIT 25.6 % (39.2-51.8); HEMOGLOBIN 8.5 g/dL (13.7-18.0); WHITE BLOOD COUNT 10.6 x10^3/uL (3.4-10)
[2017-10-08 04:23] LABS: BLOOD UREA NITROGEN 27 mg/dL (7-18)
[2017-10-08] MEDS: INSULIN ASPART 100 UNITS/ML, PEN SQ-INSULIN SCH ×5 (07:00→23:46)
[2017-10-08] MEDS: SODIUM CHLORIDE FLUSH 10ML SYR IVF SCH ×4 (08:46→21:08)
[2017-10-08] MEDS: ENOXAPARIN 40 MG/0.4 ML SQ SCH (08:49)
[2017-10-08] MEDS: DOCUSATE 50 MG/5 ML, 10ML UDC NG SCH ×2 (08:51→21:09)
[2017-10-08] MEDS: CHLORHEXIDINE MOUTHWASH 15 ML UDC MM SCH ×2 (08:51→21:04)
[2017-10-08] MEDS: MUPIROCIN OINT 2%, 22GM NAS SCH ×2 (08:52→21:04)
[2017-10-08] MEDS: ASPIRIN 81 MG TABLET EC PO SCH (08:52)
[2017-10-08] MEDS: MUPIROCIN OINT 2%, 22GM TP SCH (08:52)
[2017-10-08] MEDS: MAGNESIUM SULFATE 1 GM in SODIUM CHLORIDE 0.9% 50 ML IVPB SCH (12:45)
[2017-10-08] MEDS: HYDROcodone/APAP 5/325 TABLET PO PRN ×2 (17:52→23:12)
[2017-10-08] MEDS: HYDROcodone/APAP 10/325 MG TABLET PO PRN (19:56)
[2017-10-09] MEDS: INSULIN ASPART 100 UNITS/ML, PEN SQ-INSULIN SCH ×5 (03:00→19:57)
[2017-10-09] MEDS: HYDROcodone/APAP 5/325 TABLET PO PRN (03:12)
[2017-10-09 04:00] VITALS: BP 118/57
[2017-10-09 04:39] LABS: HEMATOCRIT 24.9 % (39.2-51.8); HEMOGLOBIN 8.4 g/dL (13.7-18.0); WHITE BLOOD COUNT 9.7 x10^3/uL (3.4-10)
[2017-10-09 04:47] LABS: BLOOD UREA NITROGEN 33 mg/dL (7-18)
[2017-10-09] MEDS: HYDROcodone/APAP 10/325 MG TABLET PO PRN ×4 (05:24→19:59)
[2017-10-09 06:34] VITALS: BP 114/62
[2017-10-09] MEDS: ONDANSETRON 2MG/ML, 2ML IVPush PRN (06:55)
[2017-10-09] MEDS: ASPIRIN 81 MG TABLET EC PO SCH (07:48)
[2017-10-09] MEDS: CLOPIDOGREL 75 MG TABLET PO SCH (07:48)
[2017-10-09] MEDS: CHLORHEXIDINE MOUTHWASH 15 ML UDC MM SCH ×2 (07:48→19:57)
[2017-10-09] MEDS: DOCUSATE 50 MG/5 ML, 10ML UDC NG SCH (07:48)
[2017-10-09] MEDS: ENOXAPARIN 40 MG/0.4 ML SQ SCH (07:48)
[2017-10-09] MEDS: SODIUM CHLORIDE FLUSH 10ML SYR IVF SCH ×3 (07:49→19:57)
[2017-10-09] MEDS: MUPIROCIN OINT 2%, 22GM TP SCH ×2 (07:51→19:57)
[2017-10-09] MEDS: MUPIROCIN OINT 2%, 22GM NAS SCH (07:51)
[2017-10-09] MEDS: DOCUSATE 50 MG/5 ML, 10ML UDC PO SCH ×2 (08:09→19:57)
[2017-10-09] MEDS ORDERED: FUROSEMIDE 20 MG/2 ML IV SCH (10:00)
[2017-10-09] MEDS: FINASTERIDE 5 MG TABLET PO SCH (10:57)
[2017-10-09] MEDS: POTASSIUM CHLORIDE 10 MEQ TABLET.ER PO SCH (10:57)
[2017-10-10] MEDS: HYDROcodone/APAP 10/325 MG TABLET PO PRN ×2 (00:11→05:23)
[2017-10-10] MEDS: INSULIN ASPART 100 UNITS/ML, PEN SQ-INSULIN SCH ×6 (00:22→20:52)
[2017-10-10 04:42] VITALS: BP 120/70
[2017-10-10 05:49] LABS: HEMATOCRIT 26.8 % (39.2-51.8); HEMOGLOBIN 8.9 g/dL (13.7-18.0); WHITE BLOOD COUNT 10.4 x10^3/uL (3.4-10)
[2017-10-10 05:55] LABS: BLOOD UREA NITROGEN 38 mg/dL (7-18)
[2017-10-10] MEDS: ONDANSETRON 2MG/ML, 2ML IVPush PRN ×2 (07:12→15:23)
[2017-10-10] MEDS: CLOPIDOGREL 75 MG TABLET PO SCH (08:17)
[2017-10-10] MEDS: ASPIRIN 81 MG TABLET EC PO SCH (08:17)
[2017-10-10] MEDS: FINASTERIDE 5 MG TABLET PO SCH (08:17)
[2017-10-10] MEDS: FUROSEMIDE 40 MG/4 ML IV SCH (08:20)
[2017-10-10] MEDS: SODIUM CHLORIDE FLUSH 10ML SYR IVF SCH ×2 (08:22→20:53)
[2017-10-10] MEDS: DOCUSATE 50 MG/5 ML, 10ML UDC PO SCH ×2 (08:24→20:45)
[2017-10-10] MEDS: POTASSIUM CHLORIDE 10 MEQ TABLET.ER PO SCH (08:49)
[2017-10-10] MEDS: MUPIROCIN OINT 2%, 22GM TP SCH ×2 (08:52→20:53)
[2017-10-10] MEDS: ENOXAPARIN 40 MG/0.4 ML SQ SCH (08:53)
[2017-10-10] MEDS: CHLORHEXIDINE MOUTHWASH 15 ML UDC MM SCH ×2 (08:53→20:45)
[2017-10-10] MEDS ORDERED: LIDOCAINE 1%, 20ML ONE (09:21)
[2017-10-10] MEDS ORDERED: VANCOMYCIN PMX 1GM/200ML 200 ML IVPB ONE (11:00)
[2017-10-11] MEDS: INSULIN ASPART 100 UNITS/ML, PEN SQ-INSULIN SCH ×6 (00:45→20:44)
[2017-10-11] MEDS: HYDROcodone/APAP 10/325 MG TABLET PO PRN ×2 (03:27→20:44)
[2017-10-11 04:00] VITALS: BP 109/57
[2017-10-11 04:47] LABS: BLOOD UREA NITROGEN 31 mg/dL (7-18)
[2017-10-11 04:50] LABS: ASPARTATE AMINO TRANSFERASE 36 U/L (15-37)
[2017-10-11] MEDS ORDERED: FENTANYL PF 100 MCG/2ML ONE (07:46)
[2017-10-11] MEDS ORDERED: CEFAZOLIN 1,000 MG ONE (07:46)
[2017-10-11] MEDS ORDERED: MIDAZOLAM 1 MG/ML, 5ML ONE (07:46)
[2017-10-11] MEDS ORDERED: CEFAZOLIN PMX 1GM/50ML 50 ML ONE (07:46)
[2017-10-11] MEDS ORDERED: LIDOCAINE 2%, 20ML ONE (07:46)
[2017-10-11] MEDS: ENOXAPARIN 40 MG/0.4 ML SQ SCH (09:00)
[2017-10-11] MEDS ORDERED: FILTER 0.22 MICRON IV PRN (09:30)
[2017-10-11] MEDS ORDERED: ZOLPIDEM 5MG TABLET PO PRN (09:30)
[2017-10-11] MEDS ORDERED: AMIODARONE 150 MG in DEXTROSE 5% 100 ML IV ONE (10:00)
[2017-10-11] MEDS ORDERED: VANCOMYCIN PMX 1GM/200ML 200 ML IVPB ONE (10:00)
[2017-10-11] MEDS: ASPIRIN 81 MG TABLET EC PO SCH (11:00)
[2017-10-11] MEDS: AMIODARONE 900 MG in DEXTROSE 5% 482 ML IV PRN (11:04)
[2017-10-11] MEDS: FINASTERIDE 5 MG TABLET PO SCH (11:05)
[2017-10-11] MEDS: CLOPIDOGREL 75 MG TABLET PO SCH (11:05)
[2017-10-11] MEDS: POTASSIUM CHLORIDE 10 MEQ TABLET.ER PO SCH (11:05)
[2017-10-11] MEDS: FUROSEMIDE 40 MG/4 ML IV SCH (11:05)
[2017-10-11] MEDS: DOCUSATE 50 MG/5 ML, 10ML UDC PO SCH (11:06)
[2017-10-11] MEDS: SODIUM CHLORIDE FLUSH 10ML SYR IVF SCH ×2 (11:07→20:43)
[2017-10-11] MEDS: MUPIROCIN OINT 2%, 22GM TP SCH ×2 (11:07→20:42)
[2017-10-11] MEDS: CHLORHEXIDINE MOUTHWASH 15 ML UDC MM SCH ×3 (11:24→20:48)
[2017-10-11] MEDS: HYDROcodone/APAP 5/325 TABLET PO PRN ×2 (14:04→16:35)
[2017-10-11] MEDS: DOCUSATE 100 MG CAPSULE PO PRN (21:49)
[2017-10-12] MEDS: INSULIN ASPART 100 UNITS/ML, PEN SQ-INSULIN SCH ×6 (00:09→19:50)
[2017-10-12] MEDS: SODIUM CHLORIDE FLUSH 10ML SYR IVF SCH ×5 (00:09→21:12)
[2017-10-12] MEDS: HYDROcodone/APAP 10/325 MG TABLET PO PRN ×5 (00:48→23:46)
[2017-10-12] MEDS: ONDANSETRON 2MG/ML, 2ML IVPush PRN ×2 (03:53→19:40)
[2017-10-12 04:00] VITALS: BP 113/69
[2017-10-12 05:02] LABS: BLOOD UREA NITROGEN 31 mg/dL (7-18)
[2017-10-12] MEDS: AMIODARONE 900 MG in DEXTROSE 5% 482 ML IV PRN ×2 (07:30→14:35)
[2017-10-12] MEDS ORDERED: AMIODARONE 200 MG TABLET PO SCH (09:00)
[2017-10-12] MEDS ORDERED: AMIODARONE 50 MG/ML, 3ML IVPush ONE (09:30)
[2017-10-12] MEDS: POTASSIUM CHLORIDE 10 MEQ TABLET.ER PO SCH (09:54)
[2017-10-12] MEDS: FUROSEMIDE 40 MG/4 ML IV SCH (09:55)
[2017-10-12] MEDS: ASPIRIN 81 MG TABLET EC PO SCH (09:56)
[2017-10-12] MEDS: CLOPIDOGREL 75 MG TABLET PO SCH (09:56)
[2017-10-12] MEDS: FINASTERIDE 5 MG TABLET PO SCH (09:56)
[2017-10-12] MEDS: ENOXAPARIN 40 MG/0.4 ML SQ SCH (09:56)
[2017-10-12] MEDS: MUPIROCIN OINT 2%, 22GM TP SCH ×2 (09:57→21:12)
[2017-10-12] MEDS: CHLORHEXIDINE MOUTHWASH 15 ML UDC MM SCH ×2 (09:57→21:13)
[2017-10-12] MEDS ORDERED: AMIODARONE 150 MG in DEXTROSE 5% 100 ML IV ONE (10:00)
[2017-10-12] MEDS ORDERED: FILTER 0.22 MICRON IV PRN (10:00)
[2017-10-12] MEDS: HYDROcodone/APAP 5/325 TABLET PO PRN (12:51)
[2017-10-12 19:21] VITALS: BP 136/85
[2017-10-13 00:17] VITALS: BP 131/80
[2017-10-13] MEDS: INSULIN ASPART 100 UNITS/ML, PEN SQ-INSULIN SCH ×6 (04:00→20:46)
[2017-10-13 04:44] LABS: HEMATOCRIT 24.9 % (39.2-51.8); HEMOGLOBIN 8.2 g/dL (13.7-18.0); WHITE BLOOD COUNT 8.5 x10^3/uL (3.4-10)
[2017-10-13 04:52] LABS: BLOOD UREA NITROGEN 34 mg/dL (7-18)
[2017-10-13 04:56] LABS: ASPARTATE AMINO TRANSFERASE 31 U/L (15-37)
[2017-10-13 08:00] VITALS: BP 122/73
[2017-10-13] MEDS: SODIUM CHLORIDE FLUSH 10ML SYR IVF SCH ×4 (09:00→21:00)
[2017-10-13] MEDS: MUPIROCIN OINT 2%, 22GM TP SCH ×2 (09:00→20:46)
[2017-10-13] MEDS: HYDROcodone/APAP 10/325 MG TABLET PO PRN ×3 (09:08→18:46)
[2017-10-13] MEDS: CLOPIDOGREL 75 MG TABLET PO SCH (09:08)
[2017-10-13] MEDS: POTASSIUM CHLORIDE 10 MEQ TABLET.ER PO SCH (09:08)
[2017-10-13] MEDS: FINASTERIDE 5 MG TABLET PO SCH (09:08)
[2017-10-13] MEDS: FUROSEMIDE 40 MG/4 ML IV SCH (09:08)
[2017-10-13] MEDS: ENOXAPARIN 40 MG/0.4 ML SQ SCH (09:10)
[2017-10-13] MEDS: CHLORHEXIDINE MOUTHWASH 15 ML UDC MM SCH ×2 (09:10→20:46)
[2017-10-13] MEDS: ASPIRIN 81 MG TABLET EC PO SCH (09:11)
[2017-10-13] MEDS ORDERED: AMIODARONE 150 MG in DEXTROSE 5% 100 ML IV ONE (11:30)
[2017-10-13] MEDS ORDERED: FUROSEMIDE 40 MG/4 ML IV ONE (13:00)
[2017-10-13] MEDS: DOCUSATE 100 MG CAPSULE PO PRN ×2 (13:08→20:54)
[2017-10-13 13:32] VITALS: BP 118/75
[2017-10-13] MEDS: ONDANSETRON 2MG/ML, 2ML IVPush PRN (15:43)
[2017-10-13 19:00] VITALS: BP 112/71
[2017-10-13] MEDS: AMIODARONE 900 MG in DEXTROSE 5% 482 ML IV PRN (20:54)
[2017-10-14] MEDS: HYDROcodone/APAP 10/325 MG TABLET PO PRN ×2 (01:09→16:16)
[2017-10-14 01:24] VITALS: BP 134/87
[2017-10-14 05:48] LABS: BLOOD UREA NITROGEN 35 mg/dL (7-18)
[2017-10-14] MEDS: ONDANSETRON 2MG/ML, 2ML IVPush PRN (07:44)
[2017-10-14 08:15] VITALS: BP 122/74
[2017-10-14] MEDS: ENOXAPARIN 40 MG/0.4 ML SQ SCH (09:24)
[2017-10-14] MEDS: CHLORHEXIDINE MOUTHWASH 15 ML UDC MM SCH ×2 (09:24→23:47)
[2017-10-14] MEDS: FUROSEMIDE 40 MG/4 ML IV SCH (09:24)
[2017-10-14] MEDS: CLOPIDOGREL 75 MG TABLET PO SCH (09:25)
[2017-10-14] MEDS: AMIODARONE 200 MG TABLET PO SCH ×2 (09:25→23:38)
[2017-10-14] MEDS: CARVEDILOL 3.125 MG TABLET PO SCH ×2 (09:25→17:35)
[2017-10-14] MEDS: ASPIRIN 81 MG TABLET EC PO SCH (09:25)
[2017-10-14] MEDS: MUPIROCIN OINT 2%, 22GM TP SCH ×2 (09:25→23:47)
[2017-10-14] MEDS: POTASSIUM CHLORIDE 10 MEQ TABLET.ER PO SCH (09:25)
[2017-10-14] MEDS: FINASTERIDE 5 MG TABLET PO SCH (09:25)
[2017-10-14] MEDS: SODIUM CHLORIDE FLUSH 10ML SYR IVF SCH ×2 (09:26→23:39)
[2017-10-14] MEDS: INSULIN ASPART 100 UNITS/ML, PEN SQ-INSULIN SCH ×4 (09:26→23:45)
[2017-10-14 13:03] VITALS: BP 107/66
[2017-10-14 20:04] VITALS: BP 100/60
[2017-10-15 01:07] VITALS: BP 113/63
[2017-10-15] MEDS: HYDROcodone/APAP 10/325 MG TABLET PO PRN ×5 (02:26→19:11)
[2017-10-15 06:13] LABS: BLOOD UREA NITROGEN 33 mg/dL (7-18)
[2017-10-15] MEDS: CARVEDILOL 3.125 MG TABLET PO SCH ×2 (06:27→16:35)
[2017-10-15] MEDS ORDERED: FUROSEMIDE 40 MG/4 ML IV ONE (06:30)
[2017-10-15 07:50] VITALS: BP 111/70
[2017-10-15] MEDS: ASPIRIN 81 MG TABLET EC PO SCH (08:41)
[2017-10-15] MEDS: AMIODARONE 200 MG TABLET PO SCH ×2 (08:41→20:39)
[2017-10-15] MEDS: CLOPIDOGREL 75 MG TABLET PO SCH (08:41)
[2017-10-15] MEDS: POTASSIUM CHLORIDE 10 MEQ TABLET.ER PO SCH (08:41)
[2017-10-15] MEDS: FINASTERIDE 5 MG TABLET PO SCH (08:41)
[2017-10-15] MEDS: ENOXAPARIN 40 MG/0.4 ML SQ SCH (08:42)
[2017-10-15] MEDS: SODIUM CHLORIDE FLUSH 10ML SYR IVF SCH ×2 (08:42→20:39)
[2017-10-15] MEDS: INSULIN ASPART 100 UNITS/ML, PEN SQ-INSULIN SCH ×4 (08:42→20:58)
[2017-10-15] MEDS: FUROSEMIDE 40 MG/4 ML IV SCH ×3 (08:42→20:39)
[2017-10-15] MEDS ORDERED: POTASSIUM CHLORIDE 10 MEQ TABLET.ER PO SCH (09:00)
[2017-10-15 13:17] VITALS: BP 102/59
[2017-10-15] MEDS: FLUTICASONE/VILANTEROL 100-25MCG/INH INH SCH (16:35)
[2017-10-15 20:24] VITALS: BP 101/62
[2017-10-15] MEDS: POTASSIUM CHLORIDE 20 MEQ TAB.ER.PRT PO SCH (20:39)
[2017-10-16] MEDS: HYDROcodone/APAP 10/325 MG TABLET PO PRN ×4 (00:52→16:29)
[2017-10-16 01:14] VITALS: BP 98/63
[2017-10-16] MEDS: CARVEDILOL 3.125 MG TABLET PO SCH ×2 (05:33→17:37)
[2017-10-16 05:56] LABS: BLOOD UREA NITROGEN 28 mg/dL (7-18)
[2017-10-16 07:08] VITALS: BP 104/65
[2017-10-16] MEDS: SODIUM CHLORIDE FLUSH 10ML SYR IVF SCH ×2 (08:20→20:20)
[2017-10-16] MEDS: FLUTICASONE/VILANTEROL 100-25MCG/INH INH SCH (08:20)
[2017-10-16] MEDS: FUROSEMIDE 40 MG/4 ML IV SCH ×2 (08:20→20:19)
[2017-10-16] MEDS: AMIODARONE 200 MG TABLET PO SCH (08:21)
[2017-10-16] MEDS: POTASSIUM CHLORIDE 20 MEQ TAB.ER.PRT PO SCH ×2 (08:21→20:19)
[2017-10-16] MEDS: CLOPIDOGREL 75 MG TABLET PO SCH (08:22)
[2017-10-16] MEDS: ASPIRIN 81 MG TABLET EC PO SCH (08:23)
[2017-10-16] MEDS: INSULIN ASPART 100 UNITS/ML, PEN SQ-INSULIN SCH ×4 (08:24→20:29)
[2017-10-16] MEDS: FINASTERIDE 5 MG TABLET PO SCH (08:25)
[2017-10-16 13:05] VITALS: BP 113/62
[2017-10-16] MEDS ORDERED: LIDOCAINE 2%, 20ML ONE (15:00)
[2017-10-16] MEDS: ENOXAPARIN 40 MG/0.4 ML SQ SCH (16:45)
[2017-10-16] MEDS ORDERED: WARFARIN 5 MG TABLET PO-COUM ONE (18:00)
[2017-10-16] MEDS: HYDROcodone/APAP 5/325 TABLET PO PRN (20:18)
[2017-10-16 20:52] VITALS: BP 109/69
[2017-10-17] MEDS: HYDROcodone/APAP 10/325 MG TABLET PO PRN ×5 (00:54→19:54)
[2017-10-17 01:01] VITALS: BP 102/59
[2017-10-17 06:36] LABS: BLOOD UREA NITROGEN 28 mg/dL (7-18)
[2017-10-17 08:55] VITALS: BP 110/55
[2017-10-17] MEDS: FLUTICASONE/VILANTEROL 100-25MCG/INH INH SCH (09:00)
[2017-10-17] MEDS: ASPIRIN 81 MG TABLET EC PO SCH (09:01)
[2017-10-17] MEDS: AMIODARONE 200 MG TABLET PO SCH (09:01)
[2017-10-17] MEDS: FUROSEMIDE 40 MG/4 ML IV SCH ×2 (09:02→19:53)
[2017-10-17] MEDS: FINASTERIDE 5 MG TABLET PO SCH (09:02)
[2017-10-17] MEDS: SODIUM CHLORIDE FLUSH 10ML SYR IVF SCH ×2 (09:02→19:53)
[2017-10-17] MEDS: POTASSIUM CHLORIDE 20 MEQ TAB.ER.PRT PO SCH ×2 (09:02→19:54)
[2017-10-17] MEDS: CARVEDILOL 3.125 MG TABLET PO SCH ×2 (09:02→17:00)
[2017-10-17] MEDS: INSULIN ASPART 100 UNITS/ML, PEN SQ-INSULIN SCH ×4 (09:14→20:06)
[2017-10-17] MEDS ORDERED: LIDOCAINE 1%, 10ML ONE (11:02)
[2017-10-17 13:40] VITALS: BP 93/60
[2017-10-17] MEDS: BISACODYL 5 MG EC TABLET PO PRN (14:29)
[2017-10-17] MEDS: ENOXAPARIN 40 MG/0.4 ML SQ SCH (16:59)
[2017-10-17] MEDS ORDERED: WARFARIN 5 MG TABLET PO-COUM ONE (18:00)
[2017-10-17 19:17] VITALS: BP 100/64
[2017-10-17] MEDS: DOCUSATE 100 MG CAPSULE PO PRN (19:54)
[2017-10-18 01:12] VITALS: BP 110/72
[2017-10-18] MEDS: HYDROcodone/APAP 10/325 MG TABLET PO PRN ×3 (04:59→15:24)
[2017-10-18] MEDS: CARVEDILOL 3.125 MG TABLET PO SCH (04:59)
[2017-10-18 06:14] LABS: ASPARTATE AMINO TRANSFERASE 17 U/L (15-37); BLOOD UREA NITROGEN 22 mg/dL (7-18)
[2017-10-18 07:24] VITALS: BP 99/64
[2017-10-18] MEDS: DOCUSATE 100 MG CAPSULE PO PRN ×2 (07:24→07:30)
[2017-10-18] MEDS: BISACODYL 5 MG EC TABLET PO PRN ×2 (07:24→07:30)
[2017-10-18] MEDS: INSULIN ASPART 100 UNITS/ML, PEN SQ-INSULIN SCH ×2 (07:31→11:42)
[2017-10-18] MEDS: FUROSEMIDE 40 MG/4 ML IV SCH (07:31)
[2017-10-18] MEDS: SODIUM CHLORIDE FLUSH 10ML SYR IVF SCH (07:31)
[2017-10-18] MEDS: FLUTICASONE/VILANTEROL 100-25MCG/INH INH SCH (09:24)
[2017-10-18] MEDS: HYDROcodone/APAP 5/325 TABLET PO PRN (09:25)
[2017-10-18] MEDS: AMIODARONE 200 MG TABLET PO SCH (09:25)
[2017-10-18] MEDS: FINASTERIDE 5 MG TABLET PO SCH (09:25)
[2017-10-18] MEDS: POTASSIUM CHLORIDE 20 MEQ TAB.ER.PRT PO SCH (09:25)
[2017-10-18] MEDS: ASPIRIN 81 MG TABLET EC PO SCH (09:25)
[2017-10-18] MEDS ORDERED: POLYETHYLENE GLYCOL 17 GM PACKET NG PRN (09:30)
[2017-10-18] MEDS ORDERED: ACET650S12 PR (10:41)
[2017-10-18] MEDS ORDERED: DEXT4TAB PO (10:41)
[2017-10-18] MEDS ORDERED: AMIO200T42 PO (10:41)
[2017-10-18] MEDS ORDERED: ONDA4VIA4 PO (10:41)
[2017-10-18] MEDS ORDERED: HYDR-3307 PO (10:41)
[2017-10-18] MEDS ORDERED: BISA5TAB5 PO (10:41)
[2017-10-18] MEDS ORDERED: POLY17PO5 PO (10:41)
[2017-10-18] MEDS ORDERED: POTA20TA6 PO (10:41)
[2017-10-18] MEDS ORDERED: Warfarin Low Dose Protocol XX (10:41)
[2017-10-18] MEDS ORDERED: ASPI-621 PO (10:41)
[2017-10-18] MEDS ORDERED: INSU100I18 SQ-INSULIN (10:41)
[2017-10-18] MEDS ORDERED: ACET325T14 PO (10:41)
[2017-10-18] MEDS ORDERED: FLUT1AER INH (10:41)
[2017-10-18] MEDS ORDERED: DOCU-131 PO (10:41)
[2017-10-18] MEDS ORDERED: BISA10SU65 PR (10:41)
[2017-10-18] MEDS ORDERED: FURO10VI37 PO (10:41)
[2017-10-18 14:56] VITALS: BP 98/58
[2017-10-18] MEDS ORDERED: WARFARIN 5 MG TABLET PO-COUM ONE (18:00)
== END 2017-10-18 16:02 | disposition home or self-care (01) | DRG 219 ==
LOC: 5SO 04:17 → CSU 09:20 → 5SO 10-12 10:53
PROVIDERS: ADMIT Thoracic Surgery (Cardiothoracic Vascular Surgery); ATTEND Thoracic Surgery (Cardiothoracic Vascular Surgery)
PROC: 5A02210 Assistance with Cardiac Output using Balloon Pump, Continuous (ICD-10-PCS; 2017-10-06)
PROC: 5A1945Z Respiratory Ventilation, 24-96 Consecutive Hours (ICD-10-PCS; 2017-10-06)
PROC: 0BH17EZ Insertion of Endotracheal Airway into Trachea, Via Natural or Artificial Opening (ICD-10-PCS; 2017-10-06)
PROC: 30233L1 Transfusion of Nonautologous Fresh Plasma into Peripheral Vein, Percutaneous Approach (ICD-10-PCS; 2017-10-06)
PROC: 30233N1 Transfusion of Nonautologous Red Blood Cells into Peripheral Vein, Percutaneous Approach (ICD-10-PCS; 2017-10-06)
PROC: 30233R1 Transfusion of Nonautologous Platelets into Peripheral Vein, Percutaneous Approach (ICD-10-PCS; 2017-10-06)
PROC: 30233M1 Transfusion of Nonautologous Plasma Cryoprecipitate into Peripheral Vein, Percutaneous Approach (ICD-10-PCS; 2017-10-06)
PROC: 30233K1 Transfusion of Nonautologous Frozen Plasma into Peripheral Vein, Percutaneous Approach (ICD-10-PCS; 2017-10-06)
PROC: B24BZZ4 Ultrasonography of Heart with Aorta, Transesophageal (ICD-10-PCS; 2017-10-06)
PROC: 5A1221Z Performance of Cardiac Output, Continuous (ICD-10-PCS; 2017-10-06)
PROC: 5A2204Z Restoration of Cardiac Rhythm, Single (ICD-10-PCS; 2017-10-06)
PROC: 5A1223Z Performance of Cardiac Pacing, Continuous (ICD-10-PCS; 2017-10-06)
PROC: 0JH606Z Insertion of Pacemaker, Dual Chamber into Chest Subcutaneous Tissue and Fascia, Open Approach (ICD-10-PCS; 2017-10-06)
PROC: 02H63JZ Insertion of Pacemaker Lead into Right Atrium, Percutaneous Approach (ICD-10-PCS; 2017-10-06)
PROC: 02HK3JZ Insertion of Pacemaker Lead into Right Ventricle, Percutaneous Approach (ICD-10-PCS; 2017-10-06)
PROC: 02RF08Z Replacement of Aortic Valve with Zooplastic Tissue, Open Approach (ICD-10-PCS; principal; 2017-10-06 08:30)
PROC: 0W9B3ZZ Drainage of Left Pleural Cavity, Percutaneous Approach (ICD-10-PCS; 2017-10-10)
PROC: 0W993ZZ Drainage of Right Pleural Cavity, Percutaneous Approach (ICD-10-PCS; 2017-10-16)
PROC: 0W9B3ZZ Drainage of Left Pleural Cavity, Percutaneous Approach (ICD-10-PCS; 2017-10-17)
DX: I35.0 Nonrheumatic aortic (valve) stenosis (principal); J96.00 Acute respiratory failure, unspecified whether with hypoxia or hypercapnia; E43 Unspecified severe protein-calorie malnutrition; I50.43 Acute on chronic combined systolic (congestive) and diastolic (congestive) heart failure; I44.2 Atrioventricular block, complete; D68.69 Other thrombophilia; E11.22 Type 2 diabetes mellitus with diabetic chronic kidney disease; N18.3 Chronic kidney disease, stage 3 (moderate); I42.0 Dilated cardiomyopathy; I48.92 Unspecified atrial flutter; J98.11 Atelectasis; I25.82 Chronic total occlusion of coronary artery; I27.20 Pulmonary hypertension, unspecified; D64.9 Anemia, unspecified; I25.10 Atherosclerotic heart disease of native coronary artery without angina pectoris; I27.29 Other secondary pulmonary hypertension; I27.81 Cor pulmonale (chronic); Z68.32 Body mass index [BMI] 32.0-32.9, adult; I48.91 Unspecified atrial fibrillation; I49.5 Sick sinus syndrome; I70.0 Atherosclerosis of aorta; I71.2 Thoracic aortic aneurysm, without rupture; J44.9 Chronic obstructive pulmonary disease, unspecified; K59.00 Constipation, unspecified; Z51.5 Encounter for palliative care; Z86.79 Personal history of other diseases of the circulatory system; Z87.891 Personal history of nicotine dependence; Z99.81 Dependence on supplemental oxygen; Z88.1 Allergy status to other antibiotic agents
CPT/HCPCS: 32555; 33208; 36415; 36600; 71010; 71020; 76700; 80048; 80053; 81003; 82040; 82330; 82800; 82803; 82810; 82947; 82962; 83036; 83735; 84132; 84295; 85014; 85018; 85025; 85049; 85347; 85610; 85730; 86850; 86900; 86923; 87081; 88304; 88305; 93005; 93306; 93312; 93321; 93325; 93970; 94002; 94003; 99156; 99157; C1760; C1768; C1779; C1785; C1892; J0171; J0690; J0697; J1644; J1650; J1815; J1940; J2250; J2260; J2405; J2704; J2720; J3010; J3370; J3475; J3480; J3490; J7189; P9045; P9047; C1751; J0282; J0780; J2270; J2370; J7050; J7060; J7120; P9012; P9016; P9017; P9035